=== PATIENT | female | born 1995 ===

== ENCOUNTER 2020-12-05 10:44 | Emergency (ER) | payer MEDICAID, SELFPAY ==
[2020-12-05 10:48] VITALS: BP 115/67; PULSE 66; O2SAT 100
[2020-12-05 11:17] VITALS: BP 135/60; PULSE 60; RESP 16; TEMP 35.8; O2SAT 98; BMI 21.7
[2020-12-05] MEDS: oxyCODONE HCl Immed Release 5 MG TABLET PO (11:23)
--- NOTE | 2020-12-05 11:26 | ED.DENTAL ---
HPI - Dental/Oral General Chief complaint: Dental/Oral Stated complaint: Dental pain Time Seen by Provider: 12/05/20 11:17 Source: patient Mode of arrival: ambulatory History of Present Illness HPI Narrative: 25-year-old female presenting to the ED with left lower dental pain times 2-3 days. Has a dentist appointment at 14:00 but was instructed to come to the ED for pain control. Patient states she has been taking ibuprofen 800 mg at home every 6 hours for pain without significant relief. Denies fevers or chills denies chest pain or shortness of breath denies trouble swallowing. Denies abdominal pain nausea vomiting or recent changes in bowel or bladder habits. Related Data Previous Rx's Medication Instructions Recorded clindamycin HCl 450 mg PO TID 7 Days #63 cap 12/05/20 Allergies Allergy/AdvReac Type Severity Reaction Status Date / Time Penicillins Allergy Severe Difficulty Verified 12/05/20 11:18 Swallowing Review of Systems Review of Systems: Constitutional : No Weight loss, No Fever, No Chills, No Night Sweats, No Fatigue, No Malaise ENT/Mouth : No Hearing loss, No Ear Pain, No Nasal Congestion, No Sinus Pain, No Hoarseness, No sore throat, No Rhinorrhea, No Swallowing Difficulty, + dental pain Eyes: No Eye Pain, No Swelling, No Redness, No Foreign Body, No Discharge, No Vision Changes Cardiovascular : No Chest Pain, No SOB, No Dyspnea on Exertion, No Orthopnea, No Edema, No Palpitations Respiratory : No Cough, No Sputum, No Wheezing, No Smoke Exposure, No Dyspnea Gastrointestinal : No Nausea, No Vomiting, No Diarrhea, No Constipation, No abdominal Pain, No Hematochezia, No Melena Genitourinary : no irregular bleeding, No Dysuria, No Urinary Frequency, No Hematuria, No Urinary Incontinence, No Urgency, No Flank Pain, No Urinary Flow Changes, No Hesitancy Musculoskeletal : No joint pain, No Myalgias, No Joint Swelling Skin : No Skin Lesions, No rash Neuro : No Weakness, No Numbness, No Paresthesias, No Loss of Consciousness, No Dizziness, No Headache Psych : No Anxiety/Panic, No Depression, No SI/HI/AH/VH, No Social Issues, Heme/Lymph: No Bruising, No Bleeding,No Lymphadenopathy Endocrine : No Polyuria, No Polydipsia, No Temperature Intolerance PMFSH Past Medical History Attestation statement: The following information was validated with the patient. Source: old records reviewed and obtained from family Social History Social History Advance Directives: Yes Advance Directives Information Provided: Yes Advance Directives on File: No Patient : No Physical Exam Vital Signs: Vital Signs: Last Vital Signs Temp 96.4 F L 12/05/20 11:17 Pulse 60 12/05/20 11:17 Resp 16 12/05/20 11:17 BP 135/60 12/05/20 11:17 Pulse Ox 98 12/05/20 11:17 Body Mass Index 21.7 vital signs have been reviewed as normal and appeared to be correct. Blood pressure normal. Heart rate normal. Respiration rate normal. Temperature normal. Oxygen saturation normal. Appearance: Alert. Oriented X3. Mild acute distress. Head: Normal external exam. Normocephalic. Atraumatic. No Fitzgerald signs noted. No raccoon eyes noted Eyes: Conjunctiva and sclera normal. ENT: EAC normal. Moist mucous membranes. No drooling noted. No muffled voice noted. Poor dentition noted, left posterior lower molar broken to the gumline, tenderness to palpation of this region without fluctuance or evidence of abscess noted. No Trismus. Neck: Normal inspection. Neck supple. FROM. No meningeal signs. CVS: Pulses normal throughout. Respiratory: No respiratory distress. Painless inspiration. No accessory muscle usage noted Abdomen: No visible injury noted. Back: Full range of motion noted. Skin: Skin warm and dry. Normal skin color. Normal skin turgor. Extremities: No lower extremity edema. Extremities exhibit normal range of motion. Neuro: Oriented X 3. No motor deficit. No sensory deficit. MDM - Dental/Oral MDM Narrative Medical decision making narrative: Patient's vital signs are stable and she is afebrile patient presenting to the ED with dental pain scheduled for dentist appointment at 14:00 scheduled to come to the ED for pain control. Patient taking ibuprofen without improvement of symptoms. No signs of trismus of posterior pharynx abnormalities. Poor dentition noted with broken tooth to the left posterior molar over area of pain likely pain secondary to root exposure will give single dose of oral oxycodone for acute pain control patient did not drive here and advised following up as scheduled today for additional management. Will also prescribe clindamycin due to patient's penicillin allergy due to concern for dental infection patient comfortable with this plan no other secondary signs of injury trauma or infection will discharge home this time. Discharge Plan Discharge Clinical Impression: Dental infection Patient Disposition: Home, Self-Care Instructions: Dental Abscess (ED) Additional Instructions: Follow up with dentist as scheduled at 2pm. Prescriptions: New clindamycin HCl 150 mg capsule 450 mg PO TID 7 Days Qty: 63 RF: 0 Interventions: ED Discharge Assessment Last Done: 12/05/20 11:35 Discharge Date/Time: 12/05/20 11:38 Print Language: [place] Islander
== END 2020-12-05 11:38 | disposition home or self-care (01) ==
PROVIDERS: Emergency Provider Student in an Organized Health Care Education/Training Program
DX: K04.7 Periapical abscess without sinus (principal)
CPT/HCPCS: 99283

== ENCOUNTER 2020-12-15 14:26 | Emergency (ER) | payer MEDICAID, SELFPAY ==
[2020-12-15 15:44] VITALS: BP 122/89; PULSE 68; RESP 18; TEMP 36.9; O2SAT 100; BMI 22.3
--- NOTE | 2020-12-15 15:48 | ED_ITS ---
HPI - Dental/Oral General Chief complaint: General Medical Stated complaint: Severe facial pain w difficulty breathing Time Seen by Provider: 12/15/20 15:44 Source: patient Mode of arrival: ambulatory Limitations: no limitations History of Present Illness Complaint: tooth pain Onset (ago): week(s) (One week and a half) Duration: worsening Severity scale (1-10): >10 Relieving factors: other (Motrin Tylenol without any symptomatic relief initially her narcotic prescription) Exacerbating factors: chewing Context: history of dental caries and poor dental care Treatment prior to arrival: other (Seen here on 12/05/2020 placed on antibiotics then follow-up with [facility] placed on Motrin Tylenol) Related Data Previous Rx's Medication Instructions Recorded clindamycin HCl 450 mg PO TID 7 Days #63 cap 12/05/20 acetaminophen [Tylenol Extra 1,000 mg PO QID PRN #14 tab 12/15/20 Strength] ibuprofen 800 mg PO Q8H PRN #14 tab 12/15/20 oxycodone 10 mg PO Q6H PRN #14 tab 12/15/20 Allergies Allergy/AdvReac Type Severity Reaction Status Date / Time Penicillins Allergy Severe Difficulty Verified 12/05/20 11:18 Swallowing Review of Systems Review of Systems: Constitutional : No Fever, No Chills, No changes in PO intake, No difficulty speaking, no recent dental procedure, no heat or cold intolerance while eating, no recent face trauma, ENT/Mouth : + Dental pain, No Sore throat, No Jaw pain, No throat swelling, No swallowing difficulty, no change in voice, No facial swelling, no drooling, no trismus, no bleeding, no lacerations, no tongue swelling, gum swelling, Eyes: No Eye Pain, No periorbital Swelling Cardiovascular : No Chest Pain, No SOB Respiratory : No Cough, No Sputum, No Wheezing, No Smoke Exposure, No Dyspnea Gastrointestinal : No Nausea, No Vomiting, No Diarrhea Genitourinary : No Dysuria Musculoskeletal : No Myalgias Skin : No rash, no facial swelling or redness, Neuro : No Weakness, No Numbness, No Headache Yes all other systems are reviewed and are negative PMFSH Past Medical History Attestation statement: The following information was validated with the patient. Physical Exam Vital Signs: Vital Signs: vital signs have been reviewed as normal and appeared to be correct. Blood pressure normal. Heart rate normal. Respiration rate normal. Temperature normal. Oxygen saturation normal. Appearance: Alert. Oriented X3. No acute distress. Head: Normal external exam. Normocephalic. Atraumatic. Eyes: PERRLA. EOMI. Conjunctiva and sclera normal. Eyelids normal. ENT: EAC normal. TM's Normal. Pharynx normal. Uvula midline. Moist mucous membranes. No trismus noted. No drooling noted. No muffled voice noted. Dentition: Patient with poor dentition throughout with multiple old fractured teeth with multiple dental caries. Gingival within normal limits. No fluctuance. Not consistent with peritonsillar abscess. Not consistent with dental abscess. No salivary duct obstruction noted. Neck: Normal inspection. Neck supple. FROM. No adenopathy. Thyroid Normal. No meningeal signs. No neck mass noted. Trachea midline. CVS: Normal heart rate and rhythm. Heart sound normal. No murmurs noted. Pulses normal throughout. Respiratory: No respiratory distress. Painless inspiration. Breath sounds normal. No wheezes/rales/rhonchi noted. Chest nontender. No accessory muscle usage noted or decreased air movement noted. Back: Full range of motion noted. Skin: Skin warm and dry. Normal skin color. Normal skin turgor. No rashes/lesions/lacerations noted. Extremities:Extremities exhibit normal range of motion. Extremities nontender. Neuro: Oriented X 3. No motor deficit. No sensory deficit. Reflexes normal. Course Course Course Narrative: Patient with poor dentition. Not consistent with dental abscess/pharyngeal abscess or retropharyngeal abscess. Will DC home with symptomatic treatment as patient is already on antibiotics instructions to follow-up with oral surgeon. Patient understands agrees with this plan. [facility] [place] - Dental/Oral Medical Records Attestation: I reviewed the patient's medical records. Discharge Plan Discharge Clinical Impression: Pain, dental, Dental caries Patient Disposition: Home, Self-Care Instructions: Toothache (ED) Prescriptions: New acetaminophen [Tylenol Extra Strength] 500 mg tablet 1,000 mg PO QID PRN (Reason: fever or pain) Qty: 14 RF: 0 oxycodone 10 mg tablet 10 mg PO Q6H PRN (Reason: pain) Qty: 14 RF: 0 ibuprofen 800 mg tablet 800 mg PO Q8H PRN (Reason: pain) Qty: 14 RF: 0 No Action clindamycin HCl 150 mg capsule 450 mg PO TID 7 Days Qty: 63 RF: 0 Referrals: Physician,Unknown [Primary Care Provider] - 2 days
== END 2020-12-15 16:36 | disposition home or self-care (01) ==
PROVIDERS: Emergency Provider Emergency Medicine
DX: K02.9 Dental caries, unspecified (principal)
CPT/HCPCS: 99283

== ENCOUNTER 2020-12-21 11:08 | Emergency (ER) | payer MEDICAID, SELFPAY ==
[2020-12-21 11:40] VITALS: BP 112/73; PULSE 65; RESP 16; TEMP 36.6; O2SAT 100; BMI 22.3
[2020-12-21] MEDS: Ketorolac Tromethamine 15 MG/ML VIAL 30 MG IM (13:01)
--- NOTE | 2020-12-21 13:13 | ED.DENTAL ---
HPI - Dental/Oral General Chief complaint: Dental/Oral Stated complaint: ear mouth throat pain Time Seen by Provider: 12/21/20 12:22 Source: patient Mode of arrival: ambulatory Limitations: no limitations History of Present Illness HPI Narrative: 25-year-old female here with complaints of left dental pain which radiates to her throat into her ear. She tells me she has been having a toothache for several weeks. She tells me she has been seen why the dentist and been told that she needs to treat her infection prior to the removal of her tooth. She is currently on clindamycin and has 2 days left of her antibiotic. She is here due to persistent pain. No fevers or chills. Of note the patient was seen by her primary on December 07 and given 21 tablets of 5 mg oxycodone. She was seen here in the ED December 05 (given 1 tablet of oxycodone prior to dispo) and then in ED 12/15 and given 14 tablets of 10 mg oxycodone. She tells me she ran out of pain medication. She has not tried Motrin or Tylenol in the last few days. She called her dentist today and told him she was having pain and she was referred into the emergency department. MD Complaint: tooth pain Related Data Previous Rx's Medication Instructions Recorded clindamycin HCl 150 mg capsule 450 mg PO TID 7 Days #63 cap 12/05/20 acetaminophen 500 mg tablet 1,000 mg PO QID PRN #14 tab 12/15/20 (Tylenol Extra Strength) ibuprofen 800 mg tablet 800 mg PO Q8H PRN #14 tab 12/15/20 oxycodone 10 mg tablet 10 mg PO Q6H PRN #14 tab 12/15/20 clindamycin HCl 300 mg capsule 300 mg PO TID #21 cap 12/21/20 ketorolac 10 mg tablet 10 mg PO Q8H PRN #10 tab 12/21/20 Allergies Allergy/AdvReac Type Severity Reaction Status Date / Time Penicillins Allergy Severe Difficulty Verified 12/05/20 11:18 Swallowing Review of Systems Review of Systems: Yes all other systems are reviewed and are negative Constitutional: Constitutional: Reports no additional constitutional complaints, Denies body ache(s), Denies chills, Denies fever(s), Denies headache(s) and Denies weakness Eyes: Eyes: Reports no additional eye complaints and Denies change in vision ENT: Reports system reviewed and no additional complaints, except as documented, Reports dental pain, Denies dizziness, Reports otalgia, Denies headache(s), Denies nasal congestion, Denies nasal discharge, Denies neck pain and Reports sore throat Cardiovascular: Cardiovascular: Reports no additional cardiovascular complaints, Denies chest pain, Denies leg edema and Denies dyspnea Respiratory: Respiratory: Reports no additional respiratory complaints, Denies cough and Denies dyspnea Gastrointestinal: Gastrointestinal: Reports no additional gastrointestinal complaints, Denies abdominal pain, Denies diarrhea, Denies nausea and Denies vomiting Genitourinary: Genitourinary: Reports no additional female genitourinary complaints and Denies urinary incontinence Musculoskeletal: Musculoskeletal: Reports no additional musculoskeletal complaints, Denies back pain, Denies arthralgias, Denies joint swelling, Denies neck pain, Denies numbness and Denies tingling Integumentary/Breasts: Skin/Breast: Reports system reviewed and no additional complaints, except as docu and Denies rash Neurologic: Reports system reviewed and no additional complaints, except as documented, Denies Abnormal speech present, Denies dizziness, Denies headache(s), Denies numbness, Denies tingling and Denies weakness PMFSH Past Medical History Attestation statement: The following information was validated with the patient. Source: old records reviewed and nursing notes reviewed Social History Social History Advance Directives: No Advance Directives Information Provided: Yes Patient : No Physical Exam Vital Signs: Vital Signs: Last Vital Signs Temp 97.9 F 12/21/20 11:40 Pulse 65 12/21/20 11:40 Resp 16 12/21/20 11:40 BP 112/73 12/21/20 11:40 Pulse Ox 100 12/21/20 11:40 Body Mass Index 22.3 Const: General: cooperative, healthy appearing, comfortable and no acute distress Orientation/consciousness: patient oriented x3 Limitations: no limitations HENMT: Head: Yes normal to inspection Ears: hearing grossly normal bilaterally and TM's normal bilaterally General nose exam: Normal external nose present Face and sinus: Yes normal facial exam Mouth: Normal oral and palatal mucosa present, lip normal, tongue normal, no muffled voice and no trismus Teeth and gingiva: poor dentition Teeth image: 1. partialy visualized-appears impacted. Local erythema and swelling with tenderness. NO fluctuance or induration or obvious abscess. Throat: Yes posterior oropharynx normal, Yes tonsils normal, Yes uvula midline and No peritonsillar mass Eyes: General: appearance normal, both eyes and all related structures Pupils: Equal, round and reactive pupils present Neck: Neck: Yes normal visual inspection, Yes full ROM and Yes no lymphadenopathy Chest: Chest palpation & inspection: normal inspection of the chest Resp: Effort & Inspection: normal respiratory effort Auscultation: clear to auscultation bilaterally Cardio: Rate: regular rate Rhythm: regular rhythm Peripheral pulses: Peripheral pulses 2+ throughout GI: Inspection: Yes normal to inspection Palpation (GI): Soft to palpation and nontender Auscultation: normal bowel sounds Back/Spine/Pelvis: Thoracic/Lumbar Spine: thoracic and lumbar spine normal to inspection Skin: General skin exam: no rashes or lesions noted Neuro: General: patient oriented x3, no focal motor deficits and normal sensation to monofilament Cranial nerves: Yes Equal, round and reactive pupils present Cognition (Neuro): normal cognition Speech: No Abnormal speech present Gait exam (Neuro): Normal gait present Motor exam (neuro): 5/5 motor strength present throughout Extrem: General: Yes normal to inspection Course Course Course Narrative: 25 yo female here with persistent left lower dental pain despite being on clindamycin (ran out of all her oxycodone-multiple rx on [facility], most recently filled 10mg oxycodone tablets on 12/15). Clinically on exam patient only has mild swelling/erythema surrounding left lower tooth. NO drainable abscess noted. Posterior pharynx normal. No trismus. No s/s to suggest ludwigs angina or deeper abscess. I explained to the patient she only has a very mild dental infection and that oral antibiotics are appropriate although she on multiple occasions demands and IV and IV antibtiocs and IV analgesia. She tells me her dentist sent here for the above but is unable to tell me the name of the dentist. I asked her for the phone number so I may speak to them about their concerns but patient unable to provide. She tells me she has called them four times due to the pain and they have referred her to the ED. They have seen her once in office and explained tooth can be removed once infection is resolved. Additionally patient has concerns that she is allergic to anesthesia and I explained to her if that is the case her dentist/oral surgeon can ensure a safe environement in the OR. I will give patient additional doses of clindamycin. She is quite adamant that she needs an oxycodone refill however her clinical exam does not support this. When staff is not in room she is laughing on the phone, talking quite calmly in no apparent distress. She did receive toradol IM in the ED and I will send her home with this. I strongly encouraged her to have a discussion with her dentist moving forward and if the dentist has additional concerns he/she can call here. Reviewed worrisome signs/symptoms with patient and when to return to ED. comfortable with discharge home. Discharge Plan Discharge Clinical Impression: Toothache Patient Disposition: Home, Self-Care Instructions: Toothache (ED) Additional Instructions: salt water gargles You have a very mild infection around your tooth. If your dentist has additional concerns they may call us Complete your current clindamycin then take additional 7 days Prescriptions: New clindamycin HCl 300 mg capsule 300 mg PO TID Qty: 21 RF: 0 ketorolac 10 mg tablet 10 mg PO Q8H PRN (Reason: pain) Qty: 10 RF: 0 No Action clindamycin HCl 150 mg capsule 450 mg PO TID 7 Days Qty: 63 RF: 0 acetaminophen [Tylenol Extra Strength] 500 mg tablet 1,000 mg PO QID PRN (Reason: fever or pain) Qty: 14 RF: 0 oxycodone 10 mg tablet 10 mg PO Q6H PRN (Reason: pain) Qty: 14 RF: 0 ibuprofen 800 mg tablet 800 mg PO Q8H PRN (Reason: pain) Qty: 14 RF: 0 Referrals: Physician,Unknown [Primary Care Provider] - 2 days Interventions: ED Discharge Assessment Last Done: 12/21/20 13:20 Print Language: [place]bourg[place]
== END 2020-12-21 13:23 | disposition home or self-care (01) ==
PROVIDERS: Emergency Provider Emergency Medicine
DX: K02.9 Dental caries, unspecified (principal); Z79.84 Long term (current) use of oral hypoglycemic drugs; Z79.899 Other long term (current) drug therapy
CPT/HCPCS: 96372; 99283; 99284; J1885

== ENCOUNTER 2020-12-27 10:16 | Emergency (ER) | payer MEDICAID, SELFPAY ==
--- NOTE | ~2020-12-27 | US_ITS ---
EXAMINATION: PELVIC ULTRASOUND CLINICAL INFORMATION: Left-sided pain. Rule out torsion. COMPARISON: None TECHNIQUE: Transabdominal and transvaginal pelvic ultrasound was performed. Transvaginal exam was performed better visualization of the uterus and ovaries. Doppler color and waveform spectral analysis of the ovarian vessels was performed. FINDINGS: The uterus is anteverted and measures 7.7 x 3.5 x 5.3 cm in dimension. No focal uterine lesion is seen. Endometrial thickness is normal measuring 1.1 cm. Both ovaries are enlarged. The right ovary measures 5.2 x 4.1 x 4.8 cm, volume 51 mL. The left ovary measures 5 x 4.3 x 4.5 cm, volume 50 mL. There are bilateral ovarian complex cysts measuring 4.1 x 3.4 x 3.7 cm on the right and 4.4 x 3.2 x 3.8 cm on the left. Color and Doppler flow is documented to both ovaries. There is no evidence of torsion. There is a small amount of fluid in the pelvis. US/US pelvic ovarian doppler IMPRESSION: Large bilateral complex ovarian cysts. No evidence of torsion. Small amount of fluid in the pelvis. Short-term follow-up pelvic ultrasound following several menstrual cycles in 10-12 weeks recommended.
--- NOTE | ~2020-12-27 | US_ITS ---
EXAMINATION: PELVIC ULTRASOUND CLINICAL INFORMATION: Left-sided pain. Rule out torsion. COMPARISON: None TECHNIQUE: Transabdominal and transvaginal pelvic ultrasound was performed. Transvaginal exam was performed better visualization of the uterus and ovaries. Doppler color and waveform spectral analysis of the ovarian vessels was performed. FINDINGS: The uterus is anteverted and measures 7.7 x 3.5 x 5.3 cm in dimension. No focal uterine lesion is seen. Endometrial thickness is normal measuring 1.1 cm. Both ovaries are enlarged. The right ovary measures 5.2 x 4.1 x 4.8 cm, volume 51 mL. The left ovary measures 5 x 4.3 x 4.5 cm, volume 50 mL. There are bilateral ovarian complex cysts measuring 4.1 x 3.4 x 3.7 cm on the right and 4.4 x 3.2 x 3.8 cm on the left. Color and Doppler flow is documented to both ovaries. There is no evidence of torsion. There is a small amount of fluid in the pelvis. US/US pelvic and transvaginal IMPRESSION: Large bilateral complex ovarian cysts. No evidence of torsion. Small amount of fluid in the pelvis. Short-term follow-up pelvic ultrasound following several menstrual cycles in 10-12 weeks recommended.
--- NOTE | 2020-12-27 10:34 | ED_ITS ---
HPI - Abdominal Pain General Chief Complaint: Abdominal Pain Stated Complaint: LLQ PAIN,BURNING W/URINATION Time Seen by Provider: 12/27/20 10:30 Source: patient and EMS Mode of arrival: EMS Limitations: no limitations History of Present Illness HPI narrative: 25 y/o female with history of 6 C-sections, s/p tubal ligation who is presenting to the ER from home via EMS c/o dysuria and left sided suprapubic pain for the last 2 days. She states the pain is mostly on the left side of her scar but radiates centrally at times. She denies chance of . No fever, chills, N/V/D. No vaginal discharge or bleeding. She denies hematuria, flank pain, or urinary frequency. MD elicited complaint: abdominal pain Pertinent past history: none Onset (ago): day(s) (2) Pain Consistency: constant Location: LLQ Severity: moderate Quality: cramping and stabbing Radiation: suprapubic Exacerbating factors: nothing Relieving factors: nothing Associated symptoms: denies other symptoms Related Data Previous Rx's Medication Instructions Recorded clindamycin HCl 150 mg capsule 450 mg PO TID 7 Days #63 cap 12/05/20 acetaminophen 500 mg tablet 1,000 mg PO QID PRN #14 tab 12/15/20 (Tylenol Extra Strength) ibuprofen 800 mg tablet 800 mg PO Q8H PRN #14 tab 12/15/20 oxycodone 10 mg tablet 10 mg PO Q6H PRN #14 tab 12/15/20 clindamycin HCl 300 mg capsule 300 mg PO TID #21 cap 12/21/20 ketorolac 10 mg tablet 10 mg PO Q8H PRN #10 tab 12/21/20 hydrocodone 5 mg-acetaminophen 325 1 tab PO Q8H PRN #7 tab 12/27/20 mg tablet ibuprofen 600 mg tablet 600 mg PO Q8H PRN #14 tab 12/27/20 Allergies Allergy/AdvReac Type Severity Reaction Status Date / Time Penicillins Allergy Severe Difficulty Verified 12/05/20 11:18 Swallowing Review of Systems Constitutional: Denies chills and Denies fever(s) Eyes: Reports no additional eye complaints Cardiovascular: Denies chest pain and Denies dyspnea Respiratory: Denies dyspnea Gastrointestinal: Reports abdominal pain, Reports GI cramping, Denies nausea and Denies vomiting Genitourinary: Denies abnormal vaginal bleeding, Denies hematuria, Denies difficulty voiding, Denies genital lesions, Denies menorrhagia, Reports dysuria and Denies vaginal pruritus Musculoskeletal: Denies back pain and Denies myalgias Psychiatric: Reports anxiety Endocrine: Reports no additional endocrine complaints Hematologic/Lymphatic: Reports no additional hematologic/lymphatic complaints Allergic/Immunologic: Reports no additional allergic/immunologic complaints Physical Exam Vital Signs: Vital Signs: Last Vital Signs Temp 98.6 F 12/27/20 10:45 Pulse 78 12/27/20 10:45 Resp 16 12/27/20 10:45 BP 139/80 12/27/20 10:45 Pulse Ox 100 12/27/20 10:45 Body Mass Index 19.5 Appearance: Alert. Oriented X3. No acute distress. Eyes: Pupils equal, round and reactive to light. ENT: Pharynx normal. Neck: Normal inspection. Neck supple. CVS: Normal heart rate and rhythm. Pulses normal. Respiratory: No respiratory distress. Breath sounds normal. Abdomen: Well healed surgical scars in suprapubic region, no palpation masses or lesions. Thin, Soft with tender on the lateral aspect of the surgical scar, no rebound or guarding +BS x4. Pelvic exam deferred Skin: Skin warm and dry. Normal skin color. Normal skin turgor. No rashes. Extremities: No lower extremity edema. Neuro: Oriented X 3. No motor deficit. No sensory deficit. Course Course Course Narrative: 25 y/o female presenting with dysuria and left sided pelvic pain x2 days. UA is negative for infection. Will get pelvic U/S for further assessment. Reevaluation(s) Reevaluation #1: Pelvic U/S showing Large bilateral complex ovarian cysts. No evidence of torsion. Small amount of fluid in the pelvis. Short-term follow-up pelvic ultrasound following several menstrual cycles in 10-12 weeks recommended Results discussed with patient via staff climate scientist. Will give pain control Rx and NSAIDs. She has an [facility] to follow up with and agrees to follow up for further management. Stable for d/c home with supportive care. We reviewed concern for ovarian torsion and to return to the ER if she has significant worsening of her pain. MDM - Abdominal Pain Lab Data Labs: Lab Results 12/27/20 12/27/20 Range/Units 10:40 10:40 Urine Color YELLOW Urine Appearance HAZY Urine pH 6.0 (5.0-8.0) Ur Specific [place] >= 1.030 H (1.005-1.025) Urine Protein NEG (NEG-TRACE) MG/DL Urine Glucose (UA) NEG (NEG) MG/DL Urine Ketones NEG (NEG) MG/DL Urine Blood NEG (NEG) Urine Nitrite NEG (NEG) Ur Leukocyte Esterase NEG (NEG) Urine Test NEGATIVE (NEGATIVE) Critical Care Time Critical Care Time Critical Care Time: No Discharge Plan Discharge Clinical Impression: Ovarian cyst Qualifiers: Laterality: bilateral Qualified Code(s): N83.201 - Unspecified ovarian cyst, right side Patient Disposition: Home, Self-Care Instructions: Ovarian Cyst (ED) Additional Instructions: Your ultrasound today showed complex cysts on both of your ovaries. Recommend following up with [facility] for further management and repeat ultrasound in the next 2-3 months. Take the prescribed medications as needed for pain. If you develop new or worsening symptoms call 911 or come back to the ER for further evaluation. [place] ecograf?a de hoy mostr? quistes complejos en ambos ovarios. Recomiende hacer un seguimiento con un obstetra / ginec?logo para un mayor control y repetir la ecograf?a en los pr?ximos 2-3 meses. [place] los medicamentos recetados seg?n sea necesario para el dolor. Si presenta s?ntomas nuevos o que empeoran, llame al 911 o regrese a la misael de emergencias para skylar evaluaci?n adicional. Prescriptions: New hydrocodone-acetaminophen 5-325 mg tablet 1 tab PO Q8H PRN (Reason: pain) Qty: 7 RF: 0 ibuprofen 600 mg tablet 600 mg PO Q8H PRN (Reason: pain) Qty: 14 RF: 0 No Action clindamycin HCl 150 mg capsule 450 mg PO TID 7 Days Qty: 63 RF: 0 acetaminophen [Tylenol Extra Strength] 500 mg tablet 1,000 mg PO QID PRN (Reason: fever or pain) Qty: 14 RF: 0 oxycodone 10 mg tablet 10 mg PO Q6H PRN (Reason: pain) Qty: 14 RF: 0 ibuprofen 800 mg tablet 800 mg PO Q8H PRN (Reason: pain) Qty: 14 RF: 0 clindamycin HCl 300 mg capsule 300 mg PO TID Qty: 21 RF: 0 ketorolac 10 mg tablet 10 mg PO Q8H PRN (Reason: pain) Qty: 10 RF: 0 Interventions: ED Discharge Assessment Last Done: 12/27/20 13:25 Discharge Date/Time: 12/27/20 13:05 [facility] Past Medical History Attestation statement: The following information was validated with the patient. Medical History Anemia Epilepsy Thyroid condition Surgical History (Updated 12/27/20 @ 10:52 by Althea Clemons) H/O tubal ligation Previous section Social History Social History Advance Directives: No Advance Directives Information Provided: No Patient : No
[2020-12-27 10:45] VITALS: BP 128/88; BP 139/80; PULSE 68; PULSE 78; RESP 16; TEMP 37; O2SAT 100; BMI 19.5
[2020-12-27 10:51] LABS: Glucose Urine UA NEG (NEG); Leukocyte Esterase Urine NEG (NEG); Nitrite Urine NEG (NEG); Specific Gravity - Urine >= 1.030 (1.005-1.025); Urine Blood NEG (NEG); Urine Ketones NEG (NEG); Urine Protein NEG (NEG-TRACE)
[2020-12-27 10:52] LABS: Appearance Urine HAZY; Color Urine YELLOW
[2020-12-27 11:05] LABS: UPreg QC Valid YES; Urine Pregnancy NEGATIVE (NEGATIVE)
[2020-12-27] MEDS: Acetaminophen 325 MG TABLET 650 MG PO (11:07)
[2020-12-27] MEDS: oxyCODONE HCl Immed Release 5 MG TABLET PO (11:48)
[2020-12-27] MEDS: Ibuprofen 600 MG TABLET PO (11:48)
== END 2020-12-27 13:05 | disposition home or self-care (01) ==
PROVIDERS: Physician Assistant; Emergency Provider Emergency Medicine
DX: N83.201 Unspecified ovarian cyst, right side (principal); N83.202 Unspecified ovarian cyst, left side
CPT/HCPCS: 36415; 76830; 76856; 81003; 81025; 93975; 96372; 99283; 99284; J1885

== ENCOUNTER 2020-12-27 18:02 | Emergency (ER) | payer MEDICAID, SELFPAY ==
[2020-12-27 18:11] VITALS: BP 113/88; PULSE 76; RESP 19; TEMP 36.9; O2SAT 100
[2020-12-27 18:24] VITALS: BP 124/80; O2SAT 98
[2020-12-27 18:25] VITALS: BP 106/66; PULSE 78; RESP 18; TEMP 36.9; O2SAT 100; BMI 19.5
--- NOTE | 2020-12-27 18:41 | ED_ITS ---
HPI - General Adult General Chief complaint: Abdominal Pain Stated complaint: abd pain Time Seen by Provider: 12/27/20 18:10 Source: patient Limitations: no limitations History of Present Illness HPI narrative: This is a 25-year-old female who complains of left lower abdominal pain, for which she was evaluated earlier today. The patient did had UTI symptoms but had a negative urinalysis. She had ultrasound done which showed bilateral ovarian cysts. The patient was treated with pain medicine and prescribed ibuprofen as well as 7 hydrocodone tablets. Patient states that she had received the medicine like Percocet as well as another tablet prior to discharge had been able to walk home but that after taking hydrocodone at home, 1st 1 tablet, and then another, she still had severe pain and the medicine alleviate her sleepy. Patient has a history of hysterectomy. She denies any vaginal discharge. She denies any fever. She has not had any nausea or vomiting. She describes the pain as sharp, severe, not worse with movement Related Data Previous Rx's Medication Instructions Recorded clindamycin HCl 150 mg capsule 450 mg PO TID 7 Days #63 cap 12/05/20 acetaminophen 500 mg tablet 1,000 mg PO QID PRN #14 tab 12/15/20 (Tylenol Extra Strength) ibuprofen 800 mg tablet 800 mg PO Q8H PRN #14 tab 12/15/20 oxycodone 10 mg tablet 10 mg PO Q6H PRN #14 tab 12/15/20 clindamycin HCl 300 mg capsule 300 mg PO TID #21 cap 12/21/20 ketorolac 10 mg tablet 10 mg PO Q8H PRN #10 tab 12/21/20 hydrocodone 5 mg-acetaminophen 325 1 tab PO Q8H PRN #7 tab 12/27/20 mg tablet ibuprofen 600 mg tablet 600 mg PO Q8H PRN #14 tab 12/27/20 oxycodone-acetaminophen 5 mg-325 1 tab PO Q4H PRN #8 tab 12/27/20 mg tablet (Percocet) Allergies Allergy/AdvReac Type Severity Reaction Status Date / Time Penicillins Allergy Severe Difficulty Verified 12/05/20 11:18 Swallowing Review of Systems Review of Systems: Yes all other systems are reviewed and are negative Constitutional: Constitutional: Reports as per HPI and Denies fever(s) Eyes: Eyes: Reports as per HPI and Reports no additional eye complaints ENT: Reports system reviewed and no additional complaints, except as documented, Reports as per HPI, Denies nasal congestion, Denies nasal discharge and Denies sore throat Cardiovascular: Cardiovascular: Reports as per HPI, Denies chest pain and Denies dyspnea Respiratory: Respiratory: Reports as per HPI, Denies cough and Denies dyspnea Gastrointestinal: Gastrointestinal: Reports as per HPI, Reports abdominal pain (Left pelvic pain), Denies diarrhea and Denies vomiting Genitourinary: Genitourinary: Reports as per HPI, Denies hematuria, Denies urinary frequency and Denies dysuria Musculoskeletal: Musculoskeletal: Reports no additional musculoskeletal complaints and Denies numbness Integumentary/Breasts: Skin/Breast: Reports as per HPI and Denies rash Neurologic: Reports as per HPI, Denies focal weakness, Denies numbness and Denies Sensory deficit (Neuro) Psychiatric: Psychiatric: Reports no additional psychiatric complaints and Reports as per HPI Endocrine: Endocrine: Reports no additional endocrine complaints and Reports as per HPI Hematologic/Lymphatic: Hematologic/Lymphatic: Reports no additional hematologic/lymphatic complaints, Reports as per HPI and Reports other (No peripheral edema) [facility] Past Medical History Medical History Anemia Epilepsy Thyroid condition Surgical History (Updated 12/27/20 @ 10:52 by Althea Clemons) H/O tubal ligation Previous section Social History Social History Advance Directives: No Advance Directives Information Provided: No Patient : No Physical Exam Vital Signs: Vital Signs: Last Vital Signs Temp 98.5 F 12/27/20 18:25 Pulse 78 12/27/20 18:25 Resp 18 12/27/20 18:25 BP 106/66 12/27/20 18:25 Pulse Ox 100 12/27/20 18:25 Body Mass Index 19.5 Const: Other: Patient not ill appearing, appears somewhat histrionic General: cooperative, no acute distress and alert Orientation/consciousness: patient oriented x3 HENMT: Head: Yes normal to inspection Eyes: General: appearance normal, both eyes and all related structures Eyelids: Yes eyelids normal Conjunctivae: conjunctivae normal Pupils: Equal, round and reactive pupils present Neck: Neck: Yes normal visual inspection and Yes supple Chest: Chest palpation & inspection: normal inspection of the chest Resp: Effort & Inspection: normal respiratory effort Auscultation: clear to auscultation bilaterally Cardio: Rate: regular rate Rhythm: regular rhythm Heart sounds: S1 normal heart sound present, S2 normal heart sound present, no gallops, no murmurs and no rubs GI: Palpation (GI): Soft to palpation, Tenderness to palpation present (GI) (Tender left pelvic area) and Other GI palpation findings present (Non- distended) Auscultation: normal bowel sounds Skin: General skin exam: no rashes or lesions noted Neuro: General: patient oriented x3, no focal motor deficits and CN's II-XI intact bilaterally Cranial nerves: Yes Equal, round and reactive pupils present Cognition (Neuro): normal cognition Motor exam (neuro): 5/5 motor strength present throughout Sensory Exam: No Sensory deficit (Neuro) Extrem: General: Yes normal to inspection and Yes no pedal edema Psych: Appearance: grossly normal Affect: normal affect Medical Decision Making MDM Narrative Medical decision making narrative: Upon re-evaluation at 19:40, the patient is sitting up, face timing on her phone, appears comfortable, states she feels comfortable going home. Patient was given oxycodone 10 mg p.o. and Toradol 30 mg IM. Patient will be discharged on limited number of Percocet tablets to use instead of the [place] she was prescribed earlier. Discharge Plan Discharge Clinical Impression: Ovarian cyst Patient Disposition: Home, Self-Care Instructions: Ovarian Cyst (ED) Additional Instructions: Stop the hydrocodone/acetaminophen, and use oxycodone/acetaminophen instead. Follow up with yourgynecologist on Friday as scheduled Prescriptions: New oxycodone-acetaminophen [Percocet] 5-325 mg tablet 1 tab PO Q4H PRN (Reason: pain) Qty: 8 RF: 0 No Action clindamycin HCl 150 mg capsule 450 mg PO TID 7 Days Qty: 63 RF: 0 acetaminophen [Tylenol Extra Strength] 500 mg tablet 1,000 mg PO QID PRN (Reason: fever or pain) Qty: 14 RF: 0 oxycodone 10 mg tablet 10 mg PO Q6H PRN (Reason: pain) Qty: 14 RF: 0 ibuprofen 800 mg tablet 800 mg PO Q8H PRN (Reason: pain) Qty: 14 RF: 0 clindamycin HCl 300 mg capsule 300 mg PO TID Qty: 21 RF: 0 ketorolac 10 mg tablet 10 mg PO Q8H PRN (Reason: pain) Qty: 10 RF: 0 hydrocodone-acetaminophen 5-325 mg tablet 1 tab PO Q8H PRN (Reason: pain) Qty: 7 RF: 0 ibuprofen 600 mg tablet 600 mg PO Q8H PRN (Reason: pain) Qty: 14 RF: 0 Interventions: ED Discharge Assessment Last Done: 12/27/20 20:25 Discharge Date/Time: 12/27/20 20:26
[2020-12-27] MEDS: Ketorolac Tromethamine 15 MG/ML VIAL 30 MG IM (19:07)
[2020-12-27] MEDS: oxyCODONE HCl Immed Release 5 MG TABLET 10 MG PO (19:07)
== END 2020-12-27 20:26 | disposition home or self-care (01) ==
PROVIDERS: Emergency Provider Emergency Medicine
DX: N83.209 Unspecified ovarian cyst, unspecified side (principal); R10.32 Left lower quadrant pain; Z90.710 Acquired absence of both cervix and uterus
CPT/HCPCS: 96372; 99283; 99284; J1885

== ENCOUNTER 2021-01-05 18:33 | Emergency (ER) | payer MEDICAID, SELFPAY ==
--- NOTE | ~2021-01-05 | US_ITS ---
EXAMINATION: US PELVIS CLINICAL INFORMATION: Pelvic pain, previous ovarian cyst, follow-up. COMPARISON: 12/27/2020 pelvic ultrasound. TECHNIQUE: Ultrasound of the pelvis is performed using both transabdominal and transvaginal transducers along with Doppler. The patient refused transvaginal imaging limiting evaluation. FINDINGS: Uterus: Anteverted/anteflexed measuring 7.4 x 4.3 x 4.8 cm (80 mL). A scar is again seen along the anteroinferior wall. The endometrium is unremarkable measuring up to 0.6 cm at the level the fundus. The cervix is unremarkable. No significant free fluid in the cul-de-sac. Right ovary: 4.4 x 2.9 x 3.2 cm with a volume of 22 mL (previously 51 mL). A small cyst with low-grade internal echoes measures 2.3 cm. Color Doppler showed no internal vascular flow. Duplex Doppler interrogation of the right ovary showed no abnormal vascular flow. Left ovary: 4.8 x 4.0 x 3.4 cm with a volume of 34 mL (previously 50 mL). A mildly heterogeneous hypoechoic cyst measures 3.1 cm. Color Doppler showed no internal vascular flow. Duplex Doppler interrogation showed no abnormal vascular flow. US/US pelvic complete IMPRESSION: 1. No significant uterine abnormality. 2. Interval decrease in size/resolution of previously seen complex ovarian cysts bilaterally which likely represented hemorrhagic physiologic cyst. Small, likely physiologic, cysts/follicles bilaterally demonstrate benign features without evidence for other abnormality.
--- NOTE | ~2021-01-05 | US_ITS ---
EXAMINATION: US PELVIS CLINICAL INFORMATION: Pelvic pain, previous ovarian cyst, follow-up. COMPARISON: 12/27/2020 pelvic ultrasound. TECHNIQUE: Ultrasound of the pelvis is performed using both transabdominal and transvaginal transducers along with Doppler. The patient refused transvaginal imaging limiting evaluation. FINDINGS: Uterus: Anteverted/anteflexed measuring 7.4 x 4.3 x 4.8 cm (80 mL). A scar is again seen along the anteroinferior wall. The endometrium is unremarkable measuring up to 0.6 cm at the level the fundus. The cervix is unremarkable. No significant free fluid in the cul-de-sac. Right ovary: 4.4 x 2.9 x 3.2 cm with a volume of 22 mL (previously 51 mL). A small cyst with low-grade internal echoes measures 2.3 cm. Color Doppler showed no internal vascular flow. Duplex Doppler interrogation of the right ovary showed no abnormal vascular flow. Left ovary: 4.8 x 4.0 x 3.4 cm with a volume of 34 mL (previously 50 mL). A mildly heterogeneous hypoechoic cyst measures 3.1 cm. Color Doppler showed no internal vascular flow. Duplex Doppler interrogation showed no abnormal vascular flow. US/US pelvic ovarian doppler IMPRESSION: 1. No significant uterine abnormality. 2. Interval decrease in size/resolution of previously seen complex ovarian cysts bilaterally which likely represented hemorrhagic physiologic cyst. Small, likely physiologic, cysts/follicles bilaterally demonstrate benign features without evidence for other abnormality.
[2021-01-05 18:44] VITALS: BP 114/69; PULSE 104; RESP 16; TEMP 36.6; O2SAT 99; BMI 19.3
[2021-01-05 20:53] VITALS: BP 118/58; PULSE 71; RESP 69; TEMP 36.7; O2SAT 100
[2021-01-05 21:01] VITALS: BP 107/72; PULSE 66; RESP 16; TEMP 36.6; O2SAT 99
[2021-01-05 21:41] VITALS: BP 114/81; PULSE 76; RESP 19; O2SAT 100
[2021-01-05] MEDS: Acetaminophen 325 MG TABLET 975 MG PO (21:42)
--- NOTE | 2021-01-05 21:58 | PC.NURSE ---
pt aaox4, resting on stretcher, tearful c/o 20/10 pain. pt medicated per orders, labs obtained and sent for processing.
[2021-01-05 22:04] LABS: MANUAL DIFF FLAG NO
[2021-01-05 22:05] LABS: Basophils Percent Auto 0.4 % (0-2); Eosinophils Absolute Auto 0.2 X10*3/uL (0.0-0.4); Eosinophils Percent Auto 2.2 % (0-4); Hematocrit 34.3 % (37-47); Hemoglobin 11.5 g/dl (12.0-16.0); Imm Gran Abs Auto 0.01 X10*3/uL (0.00-0.03); Imm Gran Pct Auto 0.1 % (0.0-0.4); Lymphocytes Absolute Auto 2.8 X10*3/uL (1.2-4.9); Lymphocytes Percent Auto 36.4 % (20-40); Mean Corpuscular HGB Conc 33.5 g/dl (31.0-35.0); Mean Corpuscular Hemoglobin 28.8 pg (27.0-33.0); Mean Platelet Volume 9.8 fL (9.4-12.3); Monocytes Absolute Auto 0.5 X10*3/uL (0.1-1.2); Monocytes Percent Auto 6.5 % (2-11); Neutrophils Absolute Auto 4.2 X10*3/uL (2.0-8.3); Neutrophils Percent Auto 54.4 % (45-73); Platelet Count 265 X10*3/uL (160-400); Red Blood Count 3.99 X10*6/uL (4.20-5.50); White Blood Count 7.6 X10*3/uL (4.8-10.8)
[2021-01-05 22:09] LABS: Glucose Urine UA NEG (NEG); Leukocyte Esterase Urine NEG (NEG); Nitrite Urine NEG (NEG); Specific Gravity - Urine >= 1.030 (1.005-1.025); UACC Culture Trigger NO; Urine Blood 3+ (NEG); Urine Ketones NEG (NEG); Urine Protein TRACE MG/DL (NEG-TRACE)
[2021-01-05 22:11] LABS: Appearance Urine CLEAR; Color Urine YELLOW; UPreg QC Valid YES; Urine Pregnancy NEGATIVE (NEGATIVE)
--- NOTE | 2021-01-05 22:13 | ED_ITS ---
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 She presents with recurrent pain at this time without associated nausea, vomiting, fever, chills, diarrhea but states she is having significant dysuria. Patient denies current sexual activity. Related Data Previous Rx's Medication Instructions Recorded clindamycin HCl 150 mg capsule 450 mg PO TID 7 Days #63 cap 12/05/20 acetaminophen 500 mg tablet 1,000 mg PO QID PRN #14 tab 12/15/20 (Tylenol Extra Strength) ibuprofen 800 mg tablet 800 mg PO Q8H PRN #14 tab 12/15/20 oxycodone 10 mg tablet 10 mg PO Q6H PRN #14 tab 12/15/20 clindamycin HCl 300 mg capsule 300 mg PO TID #21 cap 12/21/20 ketorolac 10 mg tablet 10 mg PO Q8H PRN #10 tab 12/21/20 hydrocodone 5 mg-acetaminophen 325 1 tab PO Q8H PRN #7 tab 12/27/20 mg tablet ibuprofen 600 mg tablet 600 mg PO Q8H PRN #14 tab 12/27/20 oxycodone-acetaminophen 5 mg-325 1 tab PO Q4H PRN #8 tab 12/27/20 mg tablet (Percocet) Allergies Allergy/AdvReac Type Severity Reaction Status Date / Time Penicillins Allergy Severe Difficulty Verified 12/05/20 11:18 Swallowing Review of Systems Review of Systems Pertinent positives and negatives as stated in HPI 10 point review of systems is otherwise negative. Physical Exam Vital Signs: Vital Signs: Last Vital Signs Temp 97.9 F 01/05/21 21:01 Pulse 76 01/05/21 21:41 Resp 19 01/05/21 21:41 BP 114/81 01/05/21 21:41 Pulse Ox 100 01/05/21 21:41 Body Mass Index 19.3 VITAL SIGNS: Reviewed. GENERAL: Well developed, well nourished, in no acute distress. HEAD: Normocephalic/atraumatic EYES: PERRLA, EOMI OROPHARYNX: no oral lesions noted, posterior pharynx clear NECK: Supple, no adenopathy LUNGS: Normal breath sounds. No adventitious sounds or accessory muscle use. SpO2<100> CARDIOVASCULAR: Regular rate and rhythm without noted murmurs, no JVD or lower extremity edema. ABDOMEN: Soft, tender across lower abdomen without rebound, non-distended with bowel sounds. SKIN: Inspection of the skin reveals no rashes NEUROLOGIC: Alert and oriented x 4. Strength and sensation to light touch were grossly intact x 4. Course Course Course Narrative: 25-year-old female with history and clinical presentation suggestive of ovarian cyst, chronic pain as patient sources this is been ongoing for 7 months in reports that she has an appointment with Gynecology this next week. Patient also has a significant past surgical history significant for 6 C sections, however patient's history and presentation in consistent with SBO at this time. Suspect possible UTI. Patient provided with combination analgesics and re-evaluated. Review of all investigations negative for acute findings and as a matter fact the ultrasound actually shows interval decrease in size/resolution previously known seen complex ovarian cysts bilaterally. No evidence of torsion, patient is currently menstruating and was provided with oral potassium 4 noted mild hypokalemia and the TSH level is noted, however patient is otherwise asymptomatic with no evidence of a hyperthyroid syndrome. 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 MDM - Abdominal Pain Lab Data Result diagrams: 01/05/21 21:56 01/05/21 21:56 Labs: Lab Results 01/05/21 01/05/21 01/05/21 Range/Units 21:56 21:56 21:56 WBC 7.6 (4.8-10.8) X10*3/uL RBC 3.99 L (4.20-5.50) X10*6/uL Hgb 11.5 L (12.0-16.0) g/dl Hct 34.3 L (37-47) % MCV 86.0 (80-98) fL MCH 28.8 (27.0-33.0) pg MCHC 33.5 (31.0-35.0) g/dl RDW 13.0 (11.0-16.0) % Plt Count 265 (160-400) X10*3/uL MPV 9.8 (9.4-12.3) fL Immature Gran % (Auto) 0.1 (0.0-0.4) % Neut % (Auto) 54.4 (45-73) % Lymph % (Auto) 36.4 (20-40) % [place] % (Auto) 6.5 (2-11) % Eos % (Auto) 2.2 (0-4) % Baso % (Auto) 0.4 (0-2) % Lymph # (Auto) 2.8 (1.2-4.9) X10*3/uL [place] # (Auto) 0.5 (0.1-1.2) X10*3/uL Eos # (Auto) 0.2 (0.0-0.4) X10*3/uL Baso # (Auto) 0.0 (0.0-0.2) X10*3/uL Abs Immat Gran (auto) 0.01 (0.00-0.03) X10*3/uL Absolute Neuts (auto) 4.2 (2.0-8.3) X10*3/uL Absolute Nucleated RBC 0.000 (0.0-0.012) X10*3/uL Nucleated RBC % (auto) 0.0 (0.0-0.2) /100WBC Sodium 141 (135-145) mmol/L Potassium 3.2 L (3.3-5.1) mmol/L Chloride 108 (96-108) mmol/L Carbon Dioxide 26 (22-29) mmol/L Anion Gap 10 L (12-20) BUN 9 (9-16) mg/dL Creatinine 0.69 (0.5-1.4) mg/dL Estim Creat Clear Calc 100.0 Estimated GFR > 60 Random Glucose 100 (60-115) mg/dL Calcium 9.3 (8.4-10.2) mg/dL Total Bilirubin 0.6 (0.0-1.0) mg/dL AST 14 (5-31) U/L ALT 13 (0-31) U/L Alkaline Phosphatase 93 (39-117) U/L Total Protein 6.7 (6.5-8.0) g/dL Albumin 4.2 (3.5-5.0) g/dL TSH < 0.01 L (0.32-4.0) uIU/mL Urine Color YELLOW Urine Appearance CLEAR Urine pH 6.0 (5.0-8.0) Ur Specific [place] >= 1.030 H (1.005-1.025) Urine Protein TRACE (NEG-TRACE) MG/DL Urine Glucose (UA) NEG (NEG) MG/DL Urine Ketones NEG (NEG) MG/DL Urine Blood 3+ H (NEG) Urine Nitrite NEG (NEG) Ur Leukocyte Esterase NEG (NEG) Urine RBC 30-49 H (0) /HPF Urine WBC 0-2 (0-4) /HPF Ur Squamous Epith Cells TRACE /LPF Urine Bacteria TRACE /LPF Urine Test (NEGATIVE) 01/05/21 Range/Units 21:56 WBC (4.8-10.8) X10*3/uL RBC (4.20-5.50) X10*6/uL Hgb (12.0-16.0) g/dl Hct (37-47) % MCV (80-98) fL MCH (27.0-33.0) pg MCHC (31.0-35.0) g/dl RDW (11.0-16.0) % Plt Count (160-400) X10*3/uL MPV (9.4-12.3) fL Immature Gran % (Auto) (0.0-0.4) % Neut % (Auto) (45-73) % Lymph % (Auto) (20-40) % [place] % (Auto) (2-11) % Eos % (Auto) (0-4) % Baso % (Auto) (0-2) % Lymph # (Auto) (1.2-4.9) X10*3/uL [place] # (Auto) (0.1-1.2) X10*3/uL Eos # (Auto) (0.0-0.4) X10*3/uL Baso # (Auto) (0.0-0.2) X10*3/uL Abs Immat Gran (auto) (0.00-0.03) X10*3/uL Absolute Neuts (auto) (2.0-8.3) X10*3/uL Absolute Nucleated RBC (0.0-0.012) X10*3/uL Nucleated RBC % (auto) (0.0-0.2) /100WBC Sodium (135-145) mmol/L Potassium (3.3-5.1) mmol/L Chloride (96-108) mmol/L Carbon Dioxide (22-29) mmol/L Anion Gap (12-20) BUN (9-16) mg/dL Creatinine (0.5-1.4) mg/dL Estim Creat Clear Calc Estimated GFR Random Glucose (60-115) mg/dL Calcium (8.4-10.2) mg/dL Total Bilirubin (0.0-1.0) mg/dL AST (5-31) U/L ALT (0-31) U/L Alkaline Phosphatase (39-117) U/L Total Protein (6.5-8.0) g/dL Albumin (3.5-5.0) g/dL TSH (0.32-4.0) uIU/mL Urine Color Urine Appearance Urine pH (5.0-8.0) Ur Specific [place] (1.005-1.025) Urine Protein (NEG-TRACE) MG/DL Urine Glucose (UA) (NEG) MG/DL Urine Ketones (NEG) MG/DL Urine Blood (NEG) Urine Nitrite (NEG) Ur Leukocyte Esterase (NEG) Urine RBC (0) /HPF Urine WBC (0-4) /HPF Ur Squamous Epith Cells /LPF Urine Bacteria /LPF Urine Test NEGATIVE (NEGATIVE) Discharge Plan Discharge Clinical Impression: Pelvic pain, Hypokalemia Patient Disposition: Home, Self-Care Instructions: Hypokalemia (ED), Pelvic Pain in Women (ED) Additional Instructions: 1. reanude todos los medicamentos recetados en el [facility] [place]. 2. Tylenol 1000 mg, por v?a oral, cada 6 horas seg?n sea necesario para controlar el dolor. No exceda los 4000 mg en 24 horas. 3. Ibuprofeno 400 mg, por v?a oral con leche o alimentos, cada 6 horas seg?n sea necesario para controlar el dolor. Recomiende tony esto con Tylenol para un alivio adicional del dolor de los s?ntomas. 4. recomiende skylar almohadilla t?rmica para un alivio adicional de los s?ntomas. 5. Ro un seguimiento con الع[place] ginec?logo y proveedor de atenci?n primaria la pr?xima semana. Regrese a la misael de emergencias por un empeoramiento michael de los s?ntomas. Prescriptions: No Action clindamycin HCl 150 mg capsule 450 mg PO TID 7 Days Qty: 63 RF: 0 acetaminophen [Tylenol Extra Strength] 500 mg tablet 1,000 mg PO QID PRN (Reason: fever or pain) Qty: 14 RF: 0 oxycodone 10 mg tablet 10 mg PO Q6H PRN (Reason: pain) Qty: 14 RF: 0 ibuprofen 800 mg tablet 800 mg PO Q8H PRN (Reason: pain) Qty: 14 RF: 0 oxycodone-acetaminophen [Percocet] 5-325 mg tablet 1 tab PO Q4H PRN (Reason: pain) Qty: 8 RF: 0 clindamycin HCl 300 mg capsule 300 mg PO TID Qty: 21 RF: 0 ketorolac 10 mg tablet 10 mg PO Q8H PRN (Reason: pain) Qty: 10 RF: 0 hydrocodone-acetaminophen 5-325 mg tablet 1 tab PO Q8H PRN (Reason: pain) Qty: 7 RF: 0 ibuprofen 600 mg tablet 600 mg PO Q8H PRN (Reason: pain) Qty: 14 RF: 0 Referrals: Physician,Unknown [Primary Care Provider] - 2 days Print Language: Faroese [facility] Past Medical History Source: nursing notes reviewed Medical History Anemia Epilepsy Thyroid condition Surgical History H/O tubal ligation Previous section Social History Social History Advance Directives: No Advance Directives Information Provided: Yes Patient : No
[2021-01-05] MEDS: Ketorolac Tromethamine 15 MG/ML VIAL IVPUSH (22:23)
[2021-01-05 22:26] LABS: Bacteria Urine TRACE /LPF; RBC Urine 30-49 /HPF (0); Squamous Epithelial Cell Urine TRACE /LPF; WBC Urine 0-2 /HPF (0-4)
[2021-01-05 22:30] LABS: Alanine Aminotransferase 13 U/L (0-31); Albumin Level 4.2 g/dL (3.5-5.0); Alkaline Phosphatase 93 U/L (39-117); Anion Gap 10 (12-20); Aspartate Amino Transferase 14 U/L (5-31); Bilirubin Total 0.6 mg/dL (0.0-1.0); Blood Urea Nitrogen 9 mg/dL (9-16); Calcium 9.3 mg/dL (8.4-10.2); Carbon Dioxide 26 mmol/L (22-29); Chloride 108 mmol/L (96-108); Estimated Glomerular Filt Rate > 60; Glucose Random 100 mg/dL (60-115); Potassium 3.2 mmol/L (3.3-5.1); Sodium 141 mmol/L (135-145); Total Protein 6.7 g/dL (6.5-8.0)
[2021-01-05 22:56] LABS: Thyroid Stimulating Hormone < 0.01 uIU/mL (0.32-4.0)
[2021-01-05] MEDS: Potassium Chloride Packet 20 MEQ PACKET 60 MEQ PO (23:45)
--- NOTE | 2021-01-05 23:47 | PC.NURSE ---
This RN with Dr Salazar and pump rebuilder to bedside for discharge instructions and potassium. Pt informed that she is going to be medicated with potassium, states I'll take anything you give me. Pt provided with potassium as ordered. Dr Salazar provided pt education with discharge instructions. Pt became angry, agitated, stating this fucking bitch didn't do anything for me. They gave me an IV just to get medication through the IV. They gave me the same medication that I have at home.
--- NOTE | 2021-01-05 23:51 | PC.NURSE ---
Pt takes juice with potassium and places it on bedside table stating I'm not taking this. Let the potassium be low, I don't care that. That's what my PCP is for, I don't need to be here if you're not going to do anything for me. Pt refused to sign DC paperwork.
== END 2021-01-05 23:55 | disposition home or self-care (01) ==
PROVIDERS: Emergency Provider Student in an Organized Health Care Education/Training Program
DX: R10.2 Pelvic and perineal pain (principal); E87.6 Hypokalemia; Z79.899 Other long term (current) drug therapy
CPT/HCPCS: 36415; 76856; 80053; 81001; 81025; 84443; 85025; 93975; 96374; 99284; J1885

== ENCOUNTER 2021-03-11 21:46 | Emergency (ER) | payer MEDICAID, SELFPAY ==
[2021-03-11 21:53] VITALS: BP 119/77; PULSE 80; O2SAT 100
[2021-03-11 21:58] VITALS: BP 109/72; PULSE 73; RESP 16; TEMP 36.7; O2SAT 97; BMI 18.7
[2021-03-11 22:32] LABS: COVID-19 Test Negative (Negative)
[2021-03-11 22:51] LABS: MANUAL DIFF FLAG NO
[2021-03-11 22:52] LABS: Basophils Percent Auto 0.3 % (0-2); Eosinophils Absolute Auto 0.2 X10*3/uL (0.0-0.4); Eosinophils Percent Auto 2.3 % (0-4); Hematocrit 34.5 % (37-47); Hemoglobin 11.9 g/dl (12.0-16.0); Imm Gran Abs Auto 0.01 X10*3/uL (0.00-0.03); Imm Gran Pct Auto 0.2 % (0.0-0.4); Lymphocytes Absolute Auto 2.1 X10*3/uL (1.2-4.9); Lymphocytes Percent Auto 31.9 % (20-40); Mean Corpuscular HGB Conc 34.5 g/dl (31.0-35.0); Mean Corpuscular Hemoglobin 29.2 pg (27.0-33.0); Mean Corpuscular Volume 84.6 fL (80-98); Mean Platelet Volume 9.9 fL (9.4-12.3); Monocytes Absolute Auto 0.6 X10*3/uL (0.1-1.2); Monocytes Percent Auto 8.9 % (2-11); Neutrophils Absolute Auto 3.6 X10*3/uL (2.0-8.3); Neutrophils Percent Auto 56.4 % (45-73); Platelet Count 260 X10*3/uL (160-400); Red Blood Count 4.08 X10*6/uL (4.20-5.50); Red Cell Distribution Width 13.2 % (11.0-16.0); White Blood Count 6.4 X10*3/uL (4.8-10.8)
[2021-03-11 23:00] LABS: Appearance Urine HAZY; Color Urine DK YELLOW; Glucose Urine UA NEG (NEG); Leukocyte Esterase Urine NEG (NEG); Nitrite Urine NEG (NEG); Specific Gravity - Urine >= 1.030 (1.005-1.025); UACC Culture Trigger NO; Urine Blood NEG (NEG); Urine Ketones NEG (NEG); Urine Protein 1+ MG/DL (NEG-TRACE)
[2021-03-11 23:01] LABS: UPreg QC Valid YES; Urine Pregnancy NEGATIVE (NEGATIVE)
[2021-03-11 23:05] LABS: Anion Gap 14 (12-20); Blood Urea Nitrogen 8 mg/dL (9-16); Calcium 9.6 mg/dL (8.4-10.2); Carbon Dioxide 27 mmol/L (22-29); Chloride 107 mmol/L (96-108); Creatinine Clr Calc Pharmacy 100.8; Estimated Glomerular Filt Rate > 60; Glucose Random 104 mg/dL (60-115); Potassium 3.7 mmol/L (3.3-5.1); Sodium 144 mmol/L (135-145)
[2021-03-11 23:13] LABS: Mucus Urine 3+ /LPF; Squamous Epithelial Cell Urine 3+ /LPF
[2021-03-11 23:14] LABS: Bacteria Urine TRACE /LPF; RBC Urine 0-2 /HPF (0); WBC Urine 0 /HPF (0-4)
--- NOTE | 2021-03-11 23:28 | ED_ITS ---
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 She does states that she smokes cigarettes as well as marijuana but denies any alcohol use. Related Data Previous Rx's Medication Instructions Recorded clindamycin HCl 150 mg capsule 450 mg PO TID 7 Days #63 cap 12/05/20 acetaminophen 500 mg tablet 1,000 mg PO QID PRN #14 tab 12/15/20 (Tylenol Extra Strength) ibuprofen 800 mg tablet 800 mg PO Q8H PRN #14 tab 12/15/20 oxycodone 10 mg tablet 10 mg PO Q6H PRN #14 tab 12/15/20 clindamycin HCl 300 mg capsule 300 mg PO TID #21 cap 12/21/20 ketorolac 10 mg tablet 10 mg PO Q8H PRN #10 tab 12/21/20 hydrocodone 5 mg-acetaminophen 325 1 tab PO Q8H PRN #7 tab 12/27/20 mg tablet ibuprofen 600 mg tablet 600 mg PO Q8H PRN #14 tab 12/27/20 oxycodone-acetaminophen 5 mg-325 1 tab PO Q4H PRN #8 tab 12/27/20 mg tablet (Percocet) ondansetron HCl 4 mg tablet 4 mg PO Q8H PRN #4 tab 03/12/21 (Zofran) Allergies Allergy/AdvReac Type Severity Reaction Status Date / Time Penicillins Allergy Severe Difficulty Verified 03/11/21 21:57 Swallowing Review of Systems Review of Systems: Pertinent positives and negatives as stated in HPI 10 point review of systems is otherwise negative. [facility] Past Medical History Source: nursing notes reviewed Medical History Anemia Epilepsy Thyroid condition Surgical History H/O tubal ligation Previous section Social History Social History Alcohol intake: never Patient Tobacco Use Status: Current everyday Tobacco user Substance Use Type: Marijuana Substance Use Frequency: Occasionally Last Used Substance: Hours (ago) Any prior treatment program specific to substance use: No Advance Directives: No Physical Exam Vital Signs: Vital Signs: Last Vital Signs Temp 98.1 F 03/11/21 21:58 Pulse 61 03/12/21 01:08 Resp 18 03/12/21 01:08 BP 109/74 03/12/21 01:08 Pulse Ox 100 03/12/21 01:08 Body Mass Index 18.7 VITAL SIGNS: Reviewed. GENERAL: Well developed, well nourished, in no acute distress. HEAD: Normocephalic/atraumatic EYES: PERRLA, EOMI EARS: Ext canals without abnormality, TMs non-bulging and non-erythematous NOSE: Nares patent bilateral OROPHARYNX: no oral lesions noted, posterior pharynx clear and non-erythematous without noted tonsillar enlargement/erythema/exudates NECK: Supple, no adenopathy LUNGS: Normal breath sounds. No adventitious sounds or accessory muscle use. SpO2<100> CARDIOVASCULAR: Regular rate and rhythm without noted murmurs ABDOMEN: Soft, mild tenderness to palpation over suprapubic, non-distended with bowel sounds. SKIN: Inspection of the skin reveals no rashes NEUROLOGIC: Alert and oriented x 4. Strength and sensation to light touch were grossly intact x 4. Course Course Course Narrative: 25-year-old female with history and clinical presentation suggestive viral syndrome and on review of all investigations there are no acute findings and on re-evaluation patient feels much better after receiving Zofran and 1 L of IV fluids. She is otherwise discharged home in stable condition tolerating oral intake and instructions to follow-up with her primary care provider. MDM - Nausea/Vomiting/Diarrhea Lab Data Result diagrams: 03/11/21 22:43 03/11/21 22:43 Labs: Lab Results 03/11/21 03/11/21 03/11/21 Range/Units 22:05 22:43 22:43 WBC 6.4 (4.8-10.8) X10*3/uL RBC 4.08 L (4.20-5.50) X10*6/uL Hgb 11.9 L (12.0-16.0) g/dl Hct 34.5 L (37-47) % MCV 84.6 (80-98) fL MCH 29.2 (27.0-33.0) pg MCHC 34.5 (31.0-35.0) g/dl RDW 13.2 (11.0-16.0) % Plt Count 260 (160-400) X10*3/uL MPV 9.9 (9.4-12.3) fL Immature Gran % (Auto) 0.2 (0.0-0.4) % Neut % (Auto) 56.4 (45-73) % Lymph % (Auto) 31.9 (20-40) % [place] % (Auto) 8.9 (2-11) % Eos % (Auto) 2.3 (0-4) % Baso % (Auto) 0.3 (0-2) % Lymph # (Auto) 2.1 (1.2-4.9) X10*3/uL [place] # (Auto) 0.6 (0.1-1.2) X10*3/uL Eos # (Auto) 0.2 (0.0-0.4) X10*3/uL Baso # (Auto) 0.0 (0.0-0.2) X10*3/uL Abs Immat Gran (auto) 0.01 (0.00-0.03) X10*3/uL Absolute Neuts (auto) 3.6 (2.0-8.3) X10*3/uL Absolute Nucleated RBC 0.000 (0.0-0.012) X10*3/uL Nucleated RBC % (auto) 0.0 (0.0-0.2) /100WBC Sodium 144 (135-145) mmol/L Potassium 3.7 (3.3-5.1) mmol/L Chloride 107 (96-108) mmol/L Carbon Dioxide 27 (22-29) mmol/L Anion Gap 14 (12-20) BUN 8 L (9-16) mg/dL Creatinine 0.66 (0.5-1.4) mg/dL Estim Creat Clear Calc 100.8 Estimated GFR > 60 Random Glucose 104 (60-115) mg/dL Calcium 9.6 (8.4-10.2) mg/dL Urine Color Urine Appearance Urine pH (5.0-8.0) Ur Specific [place] (1.005-1.025) Urine Protein (NEG-TRACE) MG/DL Urine Glucose (UA) (NEG) MG/DL Urine Ketones (NEG) MG/DL Urine Blood (NEG) Urine Nitrite (NEG) Ur Leukocyte Esterase (NEG) Urine RBC (0) /HPF Urine WBC (0-4) /HPF Ur Squamous Epith Cells /LPF Urine Bacteria /LPF Urine Mucus /LPF Urine Test (NEGATIVE) COVID-19 (KING) Negative (Negative) COVID-19 Clin Com See Note 03/11/21 03/11/21 Range/Units 22:54 22:54 WBC (4.8-10.8) X10*3/uL RBC (4.20-5.50) X10*6/uL Hgb (12.0-16.0) g/dl Hct (37-47) % MCV (80-98) fL MCH (27.0-33.0) pg MCHC (31.0-35.0) g/dl RDW (11.0-16.0) % Plt Count (160-400) X10*3/uL MPV (9.4-12.3) fL Immature Gran % (Auto) (0.0-0.4) % Neut % (Auto) (45-73) % Lymph % (Auto) (20-40) % [place] % (Auto) (2-11) % Eos % (Auto) (0-4) % Baso % (Auto) (0-2) % Lymph # (Auto) (1.2-4.9) X10*3/uL [place] # (Auto) (0.1-1.2) X10*3/uL Eos # (Auto) (0.0-0.4) X10*3/uL Baso # (Auto) (0.0-0.2) X10*3/uL Abs Immat Gran (auto) (0.00-0.03) X10*3/uL Absolute Neuts (auto) (2.0-8.3) X10*3/uL Absolute Nucleated RBC (0.0-0.012) X10*3/uL Nucleated RBC % (auto) (0.0-0.2) /100WBC Sodium (135-145) mmol/L Potassium (3.3-5.1) mmol/L Chloride (96-108) mmol/L Carbon Dioxide (22-29) mmol/L Anion Gap (12-20) BUN (9-16) mg/dL Creatinine (0.5-1.4) mg/dL Estim Creat Clear Calc Estimated GFR Random Glucose (60-115) mg/dL Calcium (8.4-10.2) mg/dL Urine Color DK YELLOW Urine Appearance HAZY Urine pH 6.0 (5.0-8.0) Ur Specific [place] >= 1.030 H (1.005-1.025) Urine Protein 1+ H (NEG-TRACE) MG/DL Urine Glucose (UA) NEG (NEG) MG/DL Urine Ketones NEG (NEG) MG/DL Urine Blood NEG (NEG) Urine Nitrite NEG (NEG) Ur Leukocyte Esterase NEG (NEG) Urine RBC 0-2 (0) /HPF Urine WBC 0 (0-4) /HPF Ur Squamous Epith Cells 3+ /LPF Urine Bacteria TRACE /LPF Urine Mucus 3+ /LPF Urine Test NEGATIVE (NEGATIVE) COVID-19 (KING) (Negative) COVID-19 Clin Com Discharge Plan Discharge Clinical Impression: Gastroenteritis, Viral syndrome Patient Disposition: Home, Self-Care Instructions: Dehydration (ED), Gastroenteritis (ED), Viral Syndrome (ED) Additional Instructions: 1. Aumente la hidrataci?n de los l?quidos, especialmente con agua. 2. Se le clemente proporcionado un medicamento para ayudar a controlar nia n?useas. 3. Ro un seguimiento con el proveedor de atenci?n primaria en los pr?ximos 2-3 d?as para skylar reevaluaci?n. Regrese a la misael de emergencias por un empeoramiento michael de los s?ntomas. Prescriptions: New ondansetron HCl [Zofran] 4 mg tablet 4 mg PO Q8H PRN (Reason: nausea and vomiting) Qty: 4 RF: 0 No Action clindamycin HCl 150 mg capsule 450 mg PO TID 7 Days Qty: 63 RF: 0 acetaminophen [Tylenol Extra Strength] 500 mg tablet 1,000 mg PO QID PRN (Reason: fever or pain) Qty: 14 RF: 0 oxycodone 10 mg tablet 10 mg PO Q6H PRN (Reason: pain) Qty: 14 RF: 0 ibuprofen 800 mg tablet 800 mg PO Q8H PRN (Reason: pain) Qty: 14 RF: 0 oxycodone-acetaminophen [Percocet] 5-325 mg tablet 1 tab PO Q4H PRN (Reason: pain) Qty: 8 RF: 0 clindamycin HCl 300 mg capsule 300 mg PO TID Qty: 21 RF: 0 ketorolac 10 mg tablet 10 mg PO Q8H PRN (Reason: pain) Qty: 10 RF: 0 hydrocodone-acetaminophen 5-325 mg tablet 1 tab PO Q8H PRN (Reason: pain) Qty: 7 RF: 0 ibuprofen 600 mg tablet 600 mg PO Q8H PRN (Reason: pain) Qty: 14 RF: 0 Referrals: [facility] [Primary Care Provider] - 2 days Print Language: Togolese
[2021-03-12] VITALS: BP 110/54; PULSE 68; RESP 18; O2SAT 100
[2021-03-12] MEDS: ondansetron HCL 4 MG/2 ML VIAL IVPUSH (00:20)
[2021-03-12] MEDS: 0.9 % Sodium Chloride 1,000 ML 999 ML IV (00:20)
[2021-03-12] MEDS: Ketorolac Tromethamine 15 MG/ML VIAL IVPUSH (00:20)
[2021-03-12 01:08] VITALS: BP 109/74; PULSE 61; RESP 18; O2SAT 100
[2021-03-12 01:41] VITALS: BP 113/45; PULSE 61; RESP 16
== END 2021-03-12 01:58 | disposition home or self-care (01) ==
PROVIDERS: Emergency Provider Student in an Organized Health Care Education/Training Program
DX: K52.9 Noninfective gastroenteritis and colitis, unspecified (principal); B34.9 Viral infection, unspecified; F12.90 Cannabis use, unspecified, uncomplicated; F17.210 Nicotine dependence, cigarettes, uncomplicated; Z20.822 Contact with and (suspected) exposure to COVID-19
CPT/HCPCS: 36415; 80048; 81001; 81003; 81025; 85025; 87635; 96361; 96374; 96375; 99284; 99285; J1885; J2405